=== PATIENT | female | born 1985 | race Caucasian/White ===

== ENCOUNTER 2025-08-28 11:59 | Outpatient (CLI) | payer OTHER, SELFPAY ==
--- NOTE | ~2025-08-28 | XR_ITS ---
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 Findings: No acute fracture or malalignment. No significant degenerative changes. Soft tissues unremarkable. Impression: No acute fracture or malalignment. Reviewed, dictated and finalized at location P. OCULTURAL ANTHROPOLOGY PROFESSOR Impression: No acute fracture or malalignment.
--- NOTE | ~2025-08-28 | XR_ITS ---
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 Findings: No acute fracture or malalignment. No significant degenerative changes. Soft tissues unremarkable. Impression: No acute fracture or malalignment. Reviewed, dictated and finalized at location P. T EQUIPMENT ENGINEER Impression: No acute fracture or malalignment.
== END 2025-08-28 12:00 | disposition home or self-care (01) ==
DX: M25.561 Pain in right knee (principal); M25.562 Pain in left knee
CPT/HCPCS: 73564